=== PATIENT | female | born 1995 | race Caucasian/White ===

== ENCOUNTER 2022-08-20 07:42 | Outpatient (CLI) | payer OTHER ==
[2022-08-20 12:59] LABS: BASOPHILS % (AUTO) 0.4 %; EOSINOPHILS # (AUTO) 0.1 10^3/uL (0.0-0.7); EOSINOPHILS % (AUTO) 1.1 %; HGB - HEMOGLOBIN 12.9 g/dL (12.0-16.0); LYMPHOCYTES % (AUTO) 37.7 %; MEAN CORPUSCULAR HEMOGLOBIN 30.3 pg (27.0-31.0); MEAN CORPUSCULAR HGB CONC 33.1 g/dL (32.0-36.0); MEAN CORPUSCULAR VOLUME 91.5 fL (81.0-99.0); MEAN PLATELET VOLUME 10.8 fL (7.9-10.8); MONOCYTES # (AUTO) 0.5 10^3/uL (0.0-1.0); MONOCYTES % (AUTO) 8.3 %; NEUTROPHILS # (AUTO) 2.8 10^3/uL (1.5-6.6); NEUTROPHILS % (AUTO) 52.3 %; PLT - PLATELET COUNT 387 10^3/uL (130-450); RED BLOOD COUNT 4.26 10^6/uL (4.20-5.40); RED CELL DISTRIBUTION WIDTH 12.9 % (12.0-15.0); WHITE BLOOD COUNT 5.4 x10^3/uL (4.8-10.8)
[2022-08-20 13:27] LABS: ALBUMIN 4.6 g/dL (3.2-5.5); ALBUMIN/GLOBULIN RATIO 1.5 (1.0-2.2); BILIRUBIN,TOTAL 0.9 mg/dL (0.2-1.0); CALCIUM 9.9 mg/dL (8.5-10.3); CREATININE 0.7 mg/dL (0.4-1.0); POTASSIUM 4.5 mmol/L (3.5-5.0); TOTAL PROTEIN 7.7 g/dL (6.7-8.2)
[2022-08-20 13:30] LABS: THYROID STIMULATING HORMONE 2.5 uIU/mL (0.34-5.60)
== END 2022-08-20 07:43 | disposition home or self-care (01) ==
LOC: LAB.N 07:42
PROVIDERS: ATTEND Physician Assistant
DX: Z13.9 Encounter for screening, unspecified (principal); Z13.29 Encounter for screening for other suspected endocrine disorder
CPT/HCPCS: 36415; 80050

== ENCOUNTER 2022-09-14 15:04 | Outpatient (CLI) | payer OTHER | END 2022-09-14 15:05 | disposition home or self-care (01) | LOC: DI 15:04 | PROVIDERS: ATTEND Physician Assistant | DX: R01.1 Cardiac murmur, unspecified (principal) | CPT/HCPCS: 93306 ==

== ENCOUNTER 2022-10-28 14:30 | Outpatient (CLI) | payer OTHER ==
[2022-10-29 12:39] LABS: BILIRUBIN,URINE NEGATIVE (NEGATIVE); GLUCOSE, URINE (UA) NEGATIVE (NEGATIVE); KETONES,URINE (UA) NEGATIVE (NEGATIVE); LEUKOCYTE ESTERASE, URINE NEGATIVE (NEGATIVE); NITRITE,URINE NEGATIVE (NEGATIVE); OCCULT BLOOD,URINE NEGATIVE (NEGATIVE); PROTEIN,URINE NEGATIVE (NEGATIVE); UROBILINOGEN,URINE 0.2 (NORMAL) E.U./dL (NORMAL)
[2022-10-29 12:40] LABS: CLARITY,URINE CLEAR (CLEAR)
[2022-10-29 12:51] LABS: BACTERIA,URINE Few /HPF (None Seen); RBC,URINE 0-5 /HPF (0-5); SQUAMOUS EPITHELIAL CELL,UR FEW Squamous (<= Few); WBC,URINE 0-3 /HPF (0-5)
== END 2022-10-28 23:59 | disposition home or self-care (01) ==
LOC: LAB.WC 14:30
PROVIDERS: ATTEND Nurse Practitioner
DX: Z34.90 Encounter for supervision of normal pregnancy, unspecified, unspecified trimester (principal)
CPT/HCPCS: 81001; 87086; 87181

== ENCOUNTER 2022-11-01 17:09 | Outpatient (CLI) | payer OTHER ==
[2022-11-01 20:44] LABS: BASOPHILS % (AUTO) 0.3 %; EOSINOPHILS # (AUTO) 0.1 10^3/uL (0.0-0.7); EOSINOPHILS % (AUTO) 0.5 %; HCT - HEMATOCRIT 36.3 % (37.0-47.0); HGB - HEMOGLOBIN 12.3 g/dL (12.0-16.0); LYMPHOCYTES # (AUTO) 2.7 10^3/uL (1.5-3.5); LYMPHOCYTES % (AUTO) 27.2 %; MEAN CORPUSCULAR HEMOGLOBIN 30.8 pg (27.0-31.0); MEAN CORPUSCULAR HGB CONC 33.9 g/dL (32.0-36.0); MEAN CORPUSCULAR VOLUME 90.8 fL (81.0-99.0); MEAN PLATELET VOLUME 10.4 fL (7.9-10.8); MONOCYTES # (AUTO) 0.9 10^3/uL (0.0-1.0); MONOCYTES % (AUTO) 8.9 %; NEUTROPHILS # (AUTO) 6.2 10^3/uL (1.5-6.6); NEUTROPHILS % (AUTO) 62.8 %; PLT - PLATELET COUNT 441 10^3/uL (130-450); RED CELL DISTRIBUTION WIDTH 13.1 % (12.0-15.0); WHITE BLOOD COUNT 9.9 x10^3/uL (4.8-10.8)
[2022-11-03 05:10] LABS: HBsAG SCREEN Negative (Negative)
[2022-11-03 06:09] LABS: HCV AB <0.1 s/co ratio (0.0-0.9)
[2022-11-03 08:10] LABS: RPR Non Reactive (Non Reactive); VARICELLA-ZOSTER AB IGG <135 index (Immune >165)
[2022-11-03 10:09] LABS: HIV SCREEN 4TH GENERATION Non Reactive (Non Reactive)
== END 2022-11-01 17:10 | disposition home or self-care (01) ==
LOC: LAB.N 17:09
PROVIDERS: ATTEND Nurse Practitioner
DX: Z34.90 Encounter for supervision of normal pregnancy, unspecified, unspecified trimester (principal)
CPT/HCPCS: 36415; 81001; 85025; 86592; 86762; 86787; 86803; 86850; 86900; 86901; 87086; 87340; 87389

== ENCOUNTER 2022-11-09 18:47 | Outpatient (CLI) | payer OTHER ==
--- NOTE | 2022-11-10 11:56 | Ultrasound Report ---
PROCEDURE: OB First Trimester w/TV INDICATIONS: POSITIVE TEST OUTSIDE/PRIOR DATING DATA: Last menstrual period (LMP): 09/07/2022. LMP-based estimated date of delivery (EFRAIN): 06/14/2023. First dating scan (date and location): 11/09/2022. Estimated date of delivery (EFRAIN) from first dating scan: 06/10/2023. TECHNIQUE: Real-time scanning was performed of the fetus and maternal pelvic organs, with image documentation. Endovaginal scanning was also performed to better visualize the fetus and maternal ovaries. COMPARISON: None FINDINGS: Embryo: Single living intrauterine gestation with estimated sonographic gestational age of approxima tely 9 weeks and 4 days based off crown-rump length measurement of approximately 2.76 cm. Small perig estational hemorrhage measuring 1.6 x 1.1 x 1.4 cm. Heart rate: 167 bpm Measurement variability in dating: +/- 4 weeks by LMP, +/- 7 days by mean sac diameter (use before 6 weeks gestation if crown-rump length not able to be measured), +/- 5 days by crown-rump length (6-12 weeks gestation). Maternal organs: Ovaries demonstrate presence of a large left ovarian cysts versus corpus luteal cys t measuring 6.3 x 4.5 x 6.4 cm. IMPRESSION: Single living intrauterine gestation with estimated sonographic gestational age of approximately 9 we eks and 4 days with estimated date of delivery of approximately 06/10/2023. Large left ovarian cyst measuring up to 6.4 cm in size. Recommend attention on follow-up imaging eval uation. Reviewed by: Antoni Santizo MD on 11/10/2022 11:54 AM PST Approved by: Antoni Santizo MD on 11/10/2022 11:54 AM PST Station ID: [id number]
== END 2022-11-09 18:48 | disposition home or self-care (01) ==
LOC: DI 18:47
PROVIDERS: ATTEND Nurse Practitioner
DX: O34.81 Maternal care for other abnormalities of pelvic organs, first trimester (principal); N83.202 Unspecified ovarian cyst, left side; Z3A.09 9 weeks gestation of pregnancy

== ENCOUNTER 2022-11-26 08:00 | Outpatient (CLI) | payer OTHER ==
[2022-11-27 00:09] LABS: CHLAMYDIA TRACHOMATIS DNA NEGATIVE (NEGATIVE); NEISSERIA GONORRHOEAE DNA NEGATIVE (NEGATIVE); TRICHOMONAS VAGINALIS DNA NEGATIVE (NEGATIVE)
== END 2022-11-26 23:59 | disposition home or self-care (01) ==
LOC: LAB.WC 08:00
PROVIDERS: ATTEND Obstetrics & Gynecology
DX: O23.41 Unspecified infection of urinary tract in pregnancy, first trimester (principal); R82.71 Bacteriuria
CPT/HCPCS: 87086; 87491; 87591; 87661

== ENCOUNTER 2022-12-29 16:20 | Outpatient (CLI) | payer OTHER ==
[2023-01-01 20:07] LABS: AFP MOM 1.11 (.); AFP VALUE 38.9 ng/mL (.); DIA MOM 1.32 (.); DIA VALUE 207.93 pg/mL (.); DSR (BY AGE) 1 IN 864 (.); DSR (SECOND TRIMESTER) 1 IN 1909 (.); GEST. AGE ON COLLECTION DATE 16.1 WEEKS (.); HCG VALUE 47361 mIU/mL (.); INSULIN DEP DIABETES No (.); MATERNAL AGE AT EDD 27.9 yr (.); MULTIPLE GESTATION No (.); OPEN SPINA BIFIDA RISK 1 IN 8647 (.); RACE Caucasian (.); RESULTS Report (.); TEST RESULTS *Screen Negative* (.); TRISOMY 18 RISK Not increased (.); UE3 MOM 0.77 (.); UE3 VALUE 0.76 ng/mL (.); WEIGHT 154 lbs (.)
== END 2022-12-29 16:21 | disposition home or self-care (01) ==
LOC: LAB 16:20
PROVIDERS: ATTEND Obstetrics & Gynecology
DX: Z34.90 Encounter for supervision of normal pregnancy, unspecified, unspecified trimester (principal)
CPT/HCPCS: 36415; 81511

== ENCOUNTER 2023-02-07 20:12 | Outpatient (CLI) | payer OTHER ==
--- NOTE | 2023-02-08 09:29 | Ultrasound Report ---
PROCEDURE: OB Detailed Eval INDICATIONS: SUPERVISION OF NORMAL OUTSIDE/PRIOR DATING DATA: Last menstrual period (LMP): 09/07/2022. LMP-based estimated date of delivery (EFRAIN): 06/14/2023. First dating scan (date and location): 11/09/2022. Estimated date of delivery (EFRAIN) from first dating scan: 06/10/2023. The below data below was generated using the ultrasound EFRAIN of 06/10/2023 TECHNIQUE: Real-time scanning was performed of the fetus, with image documentation and biometric measurements. COMPARISON: 11/09/2022 FINDINGS: General: A single living intrauterine gestation is present. Presentation: Vertex Placenta: Placental position is posterior, without previa. Amniotic fluid index: 18 cm, normal for gestational age. heart rate: 150 beats per minute. Maternal cervical canal: 4.5 cm long; normal length is 2.5 cm or more. biometrics: Biparietal diameter: 5.89 cm. 24 weeks 1 day. Head circumference: 21.3 cm. 23 weeks 3 days. Abdominal circumference: 18.9 cm. 23 weeks 5 days. Femur length: 4.0 cm. 22 weeks 6 days.Composite gestational age from present scan: 23 weeks 3 days Estimated weight and percentile: 588.1 g. 86.9% Measurement variability in biometric dating: +/- 10 days from 12-20 weeks gestation, +/- 2 weeks from 20-30 weeks gestation, +/- 3 weeks at 30 weeks gestation or later. Anatomic survey: Neuro: Ventricles are normal at less than 10 mm. Cisterna magna is normal at 3-11 mm. Cerebellum i s normal in size and morphology. Nuchal skin fold: Normal at less than 6 mm between 14 and 20 weeks gestational age. Face: Nose and lips, facial profile are normal. Spine: No evidence for spina bifida. Heart: 4-chambered heart is present, with normal ventricular outflow tracts. Diaphragm: Diaphragm is intact. Stomach: Left-sided stomach is present. Kidneys: No hydronephrosis. Normal is less than 5 mm in 2nd trimester, less than 7 mm in 3rd trimester. Cord: 3 vessel cord has orthotopic insertion. Bladder: Normal in size. Extremities: All 4 extremities are visualized. IMPRESSION: 1. Composite gestational age by present scan 23 weeks 3 days. 2. Normal ANDRES. 3. 588.1 g, 86.9 percentile Reviewed by: Derek Edmonds on 02/08/2023 9:28 AM PDT Approved by: Derek Edmonds on 02/08/2023 9:28 AM PDT Station ID: [id number]
== END 2023-02-07 20:13 | disposition home or self-care (01) ==
LOC: DI 20:12
PROVIDERS: ATTEND Obstetrics & Gynecology
DX: Z34.92 Encounter for supervision of normal pregnancy, unspecified, second trimester (principal); Z3A.23 23 weeks gestation of pregnancy

== ENCOUNTER 2023-02-24 08:50 | Outpatient (CLI) | payer OTHER ==
[2023-02-24 09:18] LABS: CREATININE,URINE 52.8 mg/dL; PROTEIN/CREATININE RATIO,URINE 0.1 (<=0.2)
[2023-02-24 10:07] LABS: HCT - HEMATOCRIT 32.5 % (37.0-47.0); HGB - HEMOGLOBIN 10.8 g/dL (12.0-16.0); MEAN CORPUSCULAR HEMOGLOBIN 30.8 pg (27.0-31.0); MEAN CORPUSCULAR HGB CONC 33.2 g/dL (32.0-36.0); MEAN CORPUSCULAR VOLUME 92.6 fL (81.0-99.0); RED BLOOD COUNT 3.51 10^6/uL (4.20-5.40); RED CELL DISTRIBUTION WIDTH 13.6 % (12.0-15.0); WHITE BLOOD COUNT 8.5 x10^3/uL (4.8-10.8)
[2023-02-24 10:22] LABS: URIC ACID 3.6 mg/dL (2.6-7.2)
== END 2023-02-24 08:51 | disposition home or self-care (01) ==
LOC: LAB 08:50
PROVIDERS: ATTEND Obstetrics & Gynecology
DX: O99.891 Other specified diseases and conditions complicating pregnancy (principal); R03.0 Elevated blood-pressure reading, without diagnosis of hypertension
CPT/HCPCS: 36415; 82570; 82950; 84156; 84550; 85027

== ENCOUNTER 2023-04-29 14:01 | Outpatient (CLI) | payer OTHER ==
--- NOTE | 2023-04-29 19:51 | Ultrasound Report ---
PROCEDURE: OB F/U or Repeat INDICATIONS: UTERINE SIZE DATE DISCREPENCY OUTSIDE/PRIOR DATING DATA: Last menstrual period (LMP): 09/07/2022. LMP-based estimated date of delivery (EFRAIN): 06/15/2023. First dating scan (date and location): 11/09/2022. Estimated date of delivery (EFRAIN) from first dating scan: 06/10/2023. The below data below was generated using the working EFRAIN of 06/10/2023 TECHNIQUE: Real-time scanning was performed of the fetus, with image documentation and biometric measurements. Endovaginal scanning: None COMPARISON: None. FINDINGS: General: A single living intrauterine gestation is present. Presentation: Vertex Placenta: Placental position is posterior, without previa. Amniotic fluid index: 16.4 cm, 63rd percentile for gestational age. heart rate: 141 beats per minute. Maternal cervical canal: 3.9 cm long; normal length is 2.5 cm or more. biometrics: Biparietal diameter: 8.8 cm, 35 week 3 day Head circumference: 32.1 cm, 36 week 2 day Abdominal circumference: 30.2 cm, 34 week 1 day Femur length: 6.2 cm, 32 week 1 day Estimated gestational age from initial scan: 34 week 0 day Composite gestational age from present scan: 34 week 4 day Estimated weight and percentile: 2308 g, 41 percentile Measurement variability in biometric dating: +/- 10 days from 12-20 weeks gestation, +/- 2 weeks from 20-30 weeks gestation, +/- 3 weeks at 30 weeks gestation or more. Other: Not applicable. IMPRESSION: Single live intrauterine consistent with 34 week 4 day gestation by current ultrasound Reviewed by: Doyle Raymundo MD on 04/29/2023 6:50 PM HOME Approved by: Doyle Raymundo MD on 04/29/2023 6:50 PM [facility] Station ID: [id number]
== END 2023-04-29 14:02 | disposition home or self-care (01) ==
LOC: DI 14:01
PROVIDERS: ATTEND Obstetrics & Gynecology
DX: O26.843 Uterine size-date discrepancy, third trimester (principal); Z3A.34 34 weeks gestation of pregnancy

== ENCOUNTER 2023-05-20 08:00 | Outpatient (CLI) | payer OTHER | END 2023-05-20 23:59 | disposition home or self-care (01) | LOC: LAB.WC 08:00 | PROVIDERS: ATTEND Nurse Practitioner | DX: Z36.85 Encounter for antenatal screening for Streptococcus B (principal) | CPT/HCPCS: 87797 ==

== ENCOUNTER 2023-06-18 17:19 | Inpatient (IN) | payer OTHER ==
[2023-06-18] MEDS ORDERED: METHYLERGONOVINE 0.2 MG/ML VIAL IM PRN (17:48)
[2023-06-18] MEDS ORDERED: TERBUTALINE 1 MG/ML VIAL SUBQ PRN (17:48)
[2023-06-18] MEDS ORDERED: LABETALOL 20 MG/4 ML SYRINGE IVP PRN ×3 (17:48)
[2023-06-18] MEDS ORDERED: miSOPROStoL 200 MCG TABLET PR PRN (17:48)
[2023-06-18] MEDS ORDERED: NIFEdipine 10 MG CAPSULE PO PRN (17:48)
[2023-06-18] MEDS ORDERED: OXYTOCIN 10 UNIT/ML VIAL IM PRN (17:48)
[2023-06-18] MEDS ORDERED: lidocaine 1% 20 ML MDV ID PRN (17:48)
[2023-06-18] MEDS ORDERED: OXYTOCIN/SODIUM CHLORIDE 500 ML IV PRN (17:48)
[2023-06-18] MEDS ORDERED: fentaNYL 100 MCG/2 ML VIAL IVP PRN (17:48)
[2023-06-18] MEDS ORDERED: CARBOPROST TROMETHAMINE 250 MCG/ML AMP IM PRN (17:48)
[2023-06-18] MEDS ORDERED: TRANEXAMIC ACID IN NACL 1,000 MG/100 ML BAG IV PRN (17:48)
[2023-06-18] MEDS ORDERED: miSOPROStoL 200 MCG TABLET BC PRN (17:48)
[2023-06-18] MEDS ORDERED: hydrALAZINE INJ 20 MG/ML VIAL IVP PRN ×2 (17:48)
--- NOTE | 2023-06-18 17:57 | HISTORY & PHYSICAL EXAMINATION ---
Admit History - : 1 Parity: 0 Risk/History: positive: None Complications This : positive: None - Mother's Labs Mother's Blood Type: positive: O Mother's RH: positive: Positive GBS: positive: Group B Step Negative Rubella Status: positive: Immune - Other Maternal History Other Maternal History: 06-18 Induction HPI: Patient is a 27-year-old G1, P0 at 40 weeks 4 days gestation here for induction of labor. She has good movement. Denies loss of fluid. No DODSON/BV or RUQP. No vaginal bleeding. Denies nausea and vomiting. Denies urinary urgency or dysuria. All other symptoms reviewed and were negative except per HPI. Course LMP: 09/07/2022 EFRAIN by LMP: 06/14/2023 Initial U/S: 09/07/22 /+4 c/w dates Final EFRAIN: 06/14/2023 Problems: Elevated BP: Patient's BP elevated today after immediately coming in, but normal on repeat. Labs sent. Induction scheduled. Varicella non-immune. UTI in Left ovarian cyst 6cm Systolic ejection murmur noted by PCP: Normal echocardiogram Pre- weight: 144 BMI: 24 O+/Rubella immune VZV: NON immune Genetic testing: QUAD-Negative FAS: EFW 588.1g 86.9%ile, 3VC, placenta posterior w/o previa, ANDRES 18cm Glucola: 139 Influenza:08/2022 TDAP:03/18 COVID VAX: 11/03/2021 GBS NEG HSV: Denies in self or partner Breast Pump Rx:03/18 MOD: IOL scheduled 06/20/23 at 1700 pp contraception: pap: 03/28/2021 normal Initial GC/CT: Negative PMH Ovarian cyst Raynaud's phenomenon Migraines PSH Right ankle surgery: 2011 [place] teeth removal: 2014 OB History G1, P0 SH Denies tobacco, alcohol, drugs Family History Sister: Migraines Maternal grandmother: Diabetes, lupus, hypertension, Sjogren's Paternal grandfather: Melanoma/non-Hodgkin's lymphoma Allergies No known drug allergies Medications vitamins Lansoprazole Physical exam: General: Alert, oriented, no acute distress Head: Normal cephalic atraumatic Eyes: PERRLA, extraocular motions intact. Respiratory: Normal rate of respiration. No accessory muscle use, normal respiratory effort. Cardiovascular: Regular rate and rhythm Abdomen: Gravid, nontender, nondistended Extremities: Normal range of motion Neuro: Oriented x3. Normal movements Psych: Appropriate mood and affect. Normal judgment and insight SVE: 2/50/-3, medium, posterior. Modified Tovar score 2 FHT: 140 beats per baseline, moderate variability, accelerations present, no decelerations. Category 1 [place]: Quiescent Plan 27-year-old G1, P0 at 40 weeks 4 days gestation here for induction of labor 1. 40 weeks gestation -Admit to L&D, admit labs, admit for cervical ripening -Misoprostol 25 mcg buccal every 4 hours 2. Elevated blood pressures -We will get CBC, CMP, UA - NST Procedure NST Procedure Start Time 17:55 Stop Time 18:50 Plan for Labor - Plan For Labor I expect patient to be DC'd or transferred within 96 hours.: Yes
[2023-06-18] MEDS: LACTATED RINGERS 1,000 ML IV SCH ×2 (18:15→19:51)
[2023-06-18] MEDS: SODIUM CHLORIDE FLUSH 0.9% 10 ML SYRINGE IVP SCH (18:15)
[2023-06-18 18:24] LABS: BASOPHILS % (AUTO) 0.2 %; EOSINOPHILS % (AUTO) 0.3 %; HCT - HEMATOCRIT 36.2 % (37.0-47.0); HGB - HEMOGLOBIN 12.2 g/dL (12.0-16.0); LYMPHOCYTES # (AUTO) 1.8 10^3/uL (1.5-3.5); LYMPHOCYTES % (AUTO) 16.1 %; MEAN CORPUSCULAR HEMOGLOBIN 30.4 pg (27.0-31.0); MEAN CORPUSCULAR HGB CONC 33.7 g/dL (32.0-36.0); MEAN CORPUSCULAR VOLUME 90.3 fL (81.0-99.0); MEAN PLATELET VOLUME 11.1 fL (7.9-10.8); MONOCYTES # (AUTO) 0.8 10^3/uL (0.0-1.0); MONOCYTES % (AUTO) 7.2 %; NEUTROPHILS # (AUTO) 8.3 10^3/uL (1.5-6.6); NEUTROPHILS % (AUTO) 75.8 %; PLT - PLATELET COUNT 284 10^3/uL (130-450); RED BLOOD COUNT 4.01 10^6/uL (4.20-5.40); RED CELL DISTRIBUTION WIDTH 13.4 % (12.0-15.0)
[2023-06-18 18:27] LABS: ALBUMIN 3.8 g/dL (3.2-5.5); ALBUMIN/GLOBULIN RATIO 1.3 (1.0-2.2); BILIRUBIN,TOTAL 0.5 mg/dL (0.2-1.0); CALCIUM 9.4 mg/dL (8.5-10.3); CREATININE 0.5 mg/dL (0.6-1.3); POTASSIUM 3.6 mmol/L (3.5-4.5); TOTAL PROTEIN 6.8 g/dL (6.4-8.9)
[2023-06-18] MEDS: LACTATED RINGERS 1,000 ML IV PRN (18:48)
[2023-06-18 20:16] LABS: CREATININE,URINE 86.8 mg/dL; PROTEIN/CREATININE RATIO,URINE 0.1 (<=0.2)
--- NOTE | 2023-06-18 21:28 | PROVIDER PROGRESS NOTE ---
Labor Progress Note - Uterine Monitoring Uterine Monitoring Mode: positive: External toco Contraction Frequency (min/apart): Irregular Contraction Intensity: positive: Mild Uterine Resting Tone: positive: Soft - Monitoring Monitor Mode: positive: External ultrasound Heart Rate Baseline: 145 Heart Rate Variability: positive: Moderate (6-25 bmp) Accelerations: positive: Present, 15x15 Decelerations: positive: None Strip Review: positive: Category I - Vaginal Exam Dilation (in cm): 2 Effacement (%): 50 Station: -3 Cervical Position: Posterior - Labor Progress Note Labor Progress Note/Additional Text: After patient's initial NST, stayed tachycardic to the 170s. There was a length of time where heart tracing was difficult to ascertain. Believe the baseline was still 1 45-1 50 with prolonged accelerations, but this could also been decelerations with tachycardia. Due to this, we observed patient, give a fluid bolus and assessed ANDRES. Patient is afebrile and has no leukocytosis. No reason for tachycardia. After observation and fluid hydration, heart rate came back down to the 145 with moderate of the decelerations. While fetus is looking good currently, we decided to place a cervical ripening balloon to cause the least issue. If baby tolerates CRB, will continue with other cervical ripening/induction agents., Will consider whether fetus can tolerate labor. After discussion cervical balloon, patient agreed and cervical ripening balloon was filled with 80 mL internally and 80 mL vaginally. Patient tolerated procedure well.
[2023-06-19] MEDS: LACTATED RINGERS 1,000 ML IV SCH ×3 (03:27→13:15)
[2023-06-19] MEDS ORDERED: OXYTOCIN/SODIUM CHLORIDE 500 ML IV SCH (06:00)
[2023-06-19] MEDS: SODIUM CHLORIDE FLUSH 0.9% 10 ML SYRINGE IVP PRN (07:01)
[2023-06-19] MEDS: miSOPROStoL 100 MCG TABLET BC SCH ×3 (07:49→11:14)
[2023-06-19] MEDS: SODIUM CHLORIDE FLUSH 0.9% 10 ML SYRINGE IVP SCH ×2 (07:50→11:14)
[2023-06-19] MEDS ORDERED: ROPIVACAINE 0.2% 200 MG/100 ML BAG EP ONE (09:53)
[2023-06-19] MEDS ORDERED: LIDOCAINE-PF 2% 10 ML AMP SUBQ ONE (10:19)
[2023-06-19] MEDS ORDERED: SODIUM CHLORIDE 0.9% 10 ML VIAL IVP ONE ×2 (10:19→17:11)
[2023-06-19] MEDS ORDERED: fentaNYL 100 MCG/2 ML VIAL ONE ×2 (10:19→17:11)
--- NOTE | 2023-06-19 10:25 | ANESTHESIA ---
Pre-Anesthesia VS, & Labs - Diagnosis active labor - Procedure vaginal delivery Vital Signs: Temp Pulse Resp BP Pulse Ox O2 Flow Rate 36.9 C 80 16 129/81 H 06/18/23 17:38 06/18/23 17:38 06/18/23 17:38 06/18/23 17:38 Height: 5 ft 5 in Weight (kg): 79.742 kg Body Mass Index: 29.2 BMI Classification: Overweight - NPO Last Fluid Intake: clear liquids - Is Patient ?: Yes - Lab Results Current Lab Results: Laboratory Tests 06/18/23 18:00: Sodium 135, Potassium 3.6, Chloride 105, Carbon Dioxide 22, Anion Gap 8.0, BUN 7, Creatinine 0.5 L, Estimated GFR (MDRD) 148, Glucose 116 H, Calcium 9.4, Total Bilirubin 0.5, AST 18, ALT 16, Alkaline Phosphatase 169 H, Total Protein 6.8, Albumin 3.8, Globulin 3.0, Albumin/Globulin Ratio 1.3 06/18/23 18:00: WBC 11.0 H, RBC 4.01 L, Hgb 12.2, Hct 36.2 L, MCV 90.3, MCH 30.4, MCHC 33.7, RDW 13.4, Plt Count 284, MPV 11.1 H, Neut # (Auto) 8.3 H, Lymph # (Auto) 1.8, [place] # (Auto) 0.8, Eos # (Auto) 0.0, Baso # (Auto) 0.0, Absolute Nucleated RBC 0.00, Nucleated RBC % 0.0 06/18/23 18:00: Blood Type O POSITIVE, Antibody Screen NEGATIVE Lab results reviewed: Yes Fish Bones: 06/18/23 18:00 06/18/23 18:00 Home Medications and Allergies Active Medications Carboprost Tromethamine (Carboprost Tromethamine 250 Mcg/Ml Amp) 250 mcg IM .ONCE PRN PRN Reason: Hemorrhage Fentanyl (Fentanyl 100 Mcg/2 Ml Vial) 50 mcg IVP Q1H PRN PRN Reason: Severe Pain (score 7-10) Last Admin: 06/19/23 07:01 Dose: 50 mcg Hydralazine HCl (Hydralazine Inj 20 Mg/Ml Vial) 10 mg IVP .ONCE PRN; Protocol PRN Reason: SBP> or= 160 OR DBP> or= 110 Hydralazine HCl (Hydralazine Inj 20 Mg/Ml Vial) 5 - 10 mg IVP Q20M PRN; Protocol PRN Reason: SBP> or= 160 OR DBP> or= 110 Oxytocin/Sodium Chloride (Pitocin/Sodium Chloride) 500 mls @ 999 mls/hr IV PRN PRN; Protocol PRN Reason: POST- HEMORR PREVENTION Tranexamic Acid (Tranexamic 1,000 Mg/100ml-Nacl) 1,000 mg in 100 mls @ 600 mls/hr IV Q30M PRN PRN Reason: EBL >1200mL and within 3hr Lactated Ringer's (Lr) 1,000 mls @ 125 mls/hr IV .Q8H SHIV Last Admin: 06/19/23 03:27 Dose: 125 mls/hr Lactated Ringer's (Lr) 1,000 mls @ 999 mls/hr IV PRN PRN PRN Reason: PER PHYSICIAN ORDER Last Infusion: 06/18/23 19:49 Dose: Infused Oxytocin/Sodium Chloride (Pitocin/Sodium Chloride) 500 mls @ 2 mls/hr IV TITR SHIV; Protocol Last Titration: 06/19/23 09:14 Dose: 6 milliunit/min, 6 mls/hr Labetalol HCl (Labetalol 20 Mg/4 Ml Syringe) 20 mg IVP .ONCE PRN; Protocol PRN Reason: SBP> or= 160 OR DBP> or= 110 Labetalol HCl (Labetalol 20 Mg/4 Ml Syringe) 20 - 80 mg IVP Q10M PRN; Protocol PRN Reason: SBP> or= 160 OR DBP> or= 110 Labetalol HCl (Labetalol 20 Mg/4 Ml Syringe) 20 - 40 mg IVP Q10M PRN; Protocol PRN Reason: SBP> or= 160 OR DBP> or= 110 Lidocaine HCl (Lidocaine 1% 20 Ml Mdv) 20 ml ID .ONCE PRN PRN Reason: PERINEAL REPAIR Stop: 06/21/23 17:48 Methylergonovine Maleate (Methylergonovine 0.2 Mg/Ml Vial) 0.2 mg IM .ONCE PRN PRN Reason: Hemorrhage Misoprostol (Misoprostol 200 Mcg Tablet) 600 mcg BC .ONCE PRN PRN Reason: Hemorrhage Misoprostol (Misoprostol 200 Mcg Tablet) 800 mcg VT .ONCE PRN PRN Reason: Hemorrhage Misoprostol (Misoprostol 100 Mcg Tablet) 25 mcg BC Q4H [facility] Last Admin: 06/19/23 07:50 Dose: Not Given Nifedipine (Nifedipine 10 Mg Capsule) 10 - 20 mg PO Q20M PRN; Protocol PRN Reason: SBP> or= 160 OR DBP> or= 110 Oxytocin (Oxytocin 10 Unit/Ml Vial) 10 unit IM .ONCE PRN PRN Reason: Step One if no IV access. Sodium Chloride (Sodium Chloride Flush 0.9% 10 Ml Syringe) 10 ml IVP Q8H [facility] Last Admin: 06/19/23 07:50 Dose: Not Given Sodium Chloride (Sodium Chloride Flush 0.9% 10 Ml Syringe) 10 ml IVP PRN PRN PRN Reason: NEEDED PER PROVIDER ORDERS Last Admin: 06/19/23 07:01 Dose: 10 ml Terbutaline Sulfate (Terbutaline 1 Mg/Ml Vial) 0.25 mg SUBQ .ONCE PRN PRN Reason: Tachystole Allergies/Adverse Reactions: Allergies Allergy/AdvReac Type Severity Reaction Status Date / Time No Known Drug Allergies Allergy Verified 06/18/23 18:14 Anes History & Medical History - Anesthetic History Anesthesia Complications: reports: No previous complications - Medical History Cardiovascular: reports: None Pulmonary: reports: None Gastrointestinal: reports: GERD Urinary: reports: None Neuro: reports: Migraines Musculoskeletal: reports: None Endocrine/Autoimmune: reports: None Blood Disorders: reports: None Skin: reports: None Smoking Status: Never smoker Psychosocial: reports: No issues indicated History of Cancer?: No - Surgical History Orthopedic: reports: Other (orif right ankle) - Obstetrical History : 1 Parity: 0 Events: reports: None Complications: reports: None Exam General: Alert, Oriented x3, Cooperative, No acute distress Dental: WNL Mouth Openin Fingerbreadth Neck Mobility: Normal Mallampati classification: II Thyromental Distance: 4-6 cm Mental/Cognitive Status: Alert/Oriented X3, Normal for patient Plan Anesthesia Type: Epidural Consent for Procedure(s) Verified and Reviewed: Yes Code Status: Attempt Resuscitation ASA classification: 2-Mild systemic disease Is this case an emergency?: No
[2023-06-19] MEDS ORDERED: ROPIVACAINE 0.2% 200 MG/100 ML BAG EP PRN (10:27)
[2023-06-19] MEDS ORDERED: NALOXONE 0.4 MG/ML VIAL IVP PRN ×2 (10:27→17:44)
[2023-06-19] MEDS ORDERED: ePHEDrine 50 MG/ML VIAL IVP PRN (10:27)
[2023-06-19] MEDS: LACTATED RINGERS 1,000 ML IV PRN ×2 (10:47→13:11)
--- NOTE | 2023-06-19 11:41 | PROVIDER PROGRESS NOTE ---
Labor Progress Note - Uterine Monitoring Uterine Monitoring Mode: positive: External toco Contraction Frequency (min/apart): 4-7 Contraction Intensity: positive: Moderate Uterine Resting Tone: positive: Soft - Monitoring Monitor Mode: positive: External ultrasound Heart Rate Baseline: 145 Heart Rate Variability: positive: Moderate (6-25 bmp) Accelerations: positive: Present, 15x15 Decelerations: positive: None Strip Review: positive: Category I - Vaginal Exam Dilation (in cm): 6 Effacement (%): 70 Station: -2 - Labor Progress Note Labor Progress Note/Additional Text: Patient currently doing well. Received an epidural for pain management. Had some hypotension after with occasional late decelerations. Oxytocin was have then stopped. Currently fransisco on her own. Unchanged from previous exam, so discussed amniotomy. AROM was performed with a small amount of clear fluid. Continuing expectant management at this time.
--- NOTE | 2023-06-19 14:55 | PROVIDER PROGRESS NOTE ---
Labor Progress Note - Uterine Monitoring Uterine Monitoring Mode: positive: External toco Contraction Frequency (min/apart): 6-7 Contraction Intensity: positive: Moderate Uterine Resting Tone: positive: Soft - Monitoring Monitor Mode: positive: External ultrasound Heart Rate Baseline: 145 Heart Rate Variability: positive: Moderate (6-25 bmp) Accelerations: positive: Present, 15x15 Decelerations: positive: Late, Recurrent (>50% x20 min) Strip Review: positive: Category II - Vaginal Exam Dilation (in cm): 6 Effacement (%): 70 Station: -2 (At last check per RN) - Labor Progress Note Labor Progress Note/Additional Text: Patient comfortable with epidural. Patient began having repetitive late decelerations that did not resolve. Jing less frequently, approximately 6-7 minutes now that oxytocin has been discontinued. Variability still remains good. Discussed possibility of section with patient if late decelerations do not resolve or cannot restart oxytocin.
[2023-06-19] MEDS ORDERED: ACETAMINOPHEN 500 MG TABLET PO PRN (15:26)
[2023-06-19] MEDS ORDERED: ACETAMINOPHEN 1,000 MG/100 ML 1,000 MG/100 ML BAG IV SCH (16:00)
--- NOTE | 2023-06-19 16:24 | PROVIDER PROGRESS NOTE ---
Labor Progress Note - Uterine Monitoring Uterine Monitoring Mode: positive: External toco Contraction Frequency (min/apart): 2-5 Uterine Resting Tone: positive: Soft - Monitoring Monitor Mode: positive: External ultrasound Heart Rate Baseline: 135 Heart Rate Variability: positive: Moderate (6-25 bmp) Accelerations: positive: Present, 15x15 Decelerations: positive: Late, Prolonged (>2x10 min) Strip Review: positive: Category II - Vaginal Exam Dilation (in cm): 6 Effacement (%): 70 Station: -2 - Labor Progress Note Labor Progress Note/Additional Text: Patient made cervical change throughout the day despite oxytocin use, amniotomy. We have had to stop oxytocin twice due to recurrent late decelerations. She tried a brief course of nipple stimulation and this led to further late decelerations and a prolonged deceleration. Without oxytocin, fetus is category 1 with good variability and accelerations and decelerations resolved, however patient does not make cervical change. At this time we discussed section. section was recommended. Risks, benefits and alternatives were discussed including but not limited to infection, bleeding that may require blood products or hysterectomy for life saving measures, injury to surrounding organs including but not limited to bowel, bladder, ureters, tubes and ovaries and/or the baby. Should injury occur it could require longer/additional surgery to repair. The patient stated understanding and desired to proceed. All questions were answered posed by patient.
[2023-06-19] MEDS ORDERED: ONDANSETRON 4 MG/2 ML VIAL IVP PRN ×2 (16:43→17:44)
[2023-06-19] MEDS ORDERED: ceFAZolin 2 GM VIAL ONE (16:44)
[2023-06-19] MEDS ORDERED: CARBOPROST TROMETHAMINE 250 MCG/ML AMP IM ONE (16:52)
[2023-06-19] MEDS ORDERED: miSOPROStoL 200 MCG TABLET ONE (16:52)
[2023-06-19] MEDS ORDERED: METHYLERGONOVINE 0.2 MG/ML VIAL ONE (16:52)
[2023-06-19] MEDS ORDERED: LACTATED RINGERS 1,000 ML IV SCH ×2 (17:00→19:00)
[2023-06-19] MEDS ORDERED: AZITHROMYCIN INJ 500 MG in SODIUM CHLORIDE 0.9% 250 ML IV SCH (17:00)
[2023-06-19] MEDS ORDERED: ceFAZolin 2 GM in SODIUM CHLORIDE 0.9% MINIBAG 100 ML IV SCH (17:00)
[2023-06-19] MEDS ORDERED: OXYTOCIN 10 UNIT/ML VIAL ONE (17:06)
[2023-06-19] MEDS ORDERED: ONDANSETRON 4 MG/2 ML VIAL ONE (17:24)
[2023-06-19] MEDS ORDERED: DEXAMETHASONE 4 MG/ML VIAL ONE (17:24)
[2023-06-19] MEDS ORDERED: HYDROmorphone 0.5 MG/0.5 ML SYRINGE IVP PRN (17:44)
[2023-06-19] MEDS ORDERED: MORPHINE 2 MG/ML CARPUJECT IVP PRN (17:44)
[2023-06-19] MEDS ORDERED: ATROPINE ABBOJECT 1 MG/10 ML SYRINGE IVP PRN (17:44)
[2023-06-19] MEDS ORDERED: fentaNYL 100 MCG/2 ML VIAL IVP PRN (17:44)
[2023-06-19] MEDS ORDERED: KETOROLAC 30 MG/ML VIAL ONE (17:52)
[2023-06-19] MEDS ORDERED: LACTATED RINGERS 1,000 ML IV ONE (18:15)
[2023-06-19] MEDS ORDERED: SODIUM CHLORIDE FLUSH 0.9% 10 ML SYRINGE IVP PRN (18:19)
[2023-06-19] MEDS ORDERED: OXYTOCIN/SODIUM CHLORIDE 500 ML IV PRN (18:19)
[2023-06-19] MEDS ORDERED: ONDANSETRON ODT 4 MG TABLET TL PRN (18:19)
[2023-06-19] MEDS ORDERED: SIMETHICONE CHEW 80 MG TABLET PO PRN (18:19)
--- NOTE | 2023-06-19 18:19 | OPERATIVE REPORT ---
Operative Report - General Admit Date: 06/19/23 Planned Procedure: Primary low-transverse section Pre-Op Diagnosis: Category 2 tracing, failure to descend Procedure Performed: Primary low-transverse section Post Op Diagnosis: Status post primary low-transverse section - Procedure Note Primary Surgeon: Jm Butler MD Secondary Surgeon: MONO Pearl Anesthesia Provider: Shavonne Stauffer CRNA Anesthesia Technique: Epidural Pathology: None IV Fluids (mL): 800 Estimated Blood Loss (mL): 600 Urine Output (mL): 1,100 Findings: Normal-appearing uterus, ovaries, tubes. Placenta appears grossly normal for term gestation. Small calcifications, but no significant abnormalities. Complications: None - Other Other Information/Narrative: Pre-Op diagnoses: 40 weeks gestation Category 2 tracing, remote from delivery Failure to descend Postop diagnoses: Same Status post primary low-transverse section Delivery of live morin section was recommended. Risks, benefits and alternatives were discussed including but not limited to infection, bleeding that may require blood products or hysterectomy for life saving measures, injury to surrounding organs including but not limited to bowel, bladder, ureters, tubes and ovaries and/or the baby. Should injury occur it could require longer/additional surgery to repair. The patient stated understanding and desired to proceed. All questions were answered posed by patient. Prior to being taken to the OR, 2 grams of cefazolin IV and 500 mg of azithromycin were administered. The patient was taken to the operating room where regional anesthesia was found to be adequate. She was then prepared and draped in the usual sterile fashion in the dorsal supine position with a leftward tilt displacing the uterus. Islas was draining to gravity. SCDs were on bilateral lower extremities. A pfannenstiel skin incision was then made with the scalpel and carried through to the underlying layer of fascia. The fascia was incised in the midline and the incision extended laterally with the Kinney scissors. The superior aspect of the facial incision was then grasped with the Lucian clamps, elevated and the underlying rectus muscles dissected off sharply. Attention was then turned to the inferior aspect of this incision which in a similar fashion was grasped, elevated with the Lucian clamps and the rectus muscle dissected off sharply. The rectus muscles were in the midline. The peritoneum identified, grasped with the pick-ups and entered sharply with the Metzenbaum scissors. The peritoneal incision was then extended superiorly and inferiorly with good visualization of the bladder. The bladder blade was inserted. The vesicouterine peritoneum was identified, grasped with the pick-ups, and entered sharply with Metzenbaum scissors. This incision was then extended laterally and the bladder flap created digitally. The bladder blade was reinserted. The lower uterine segment was identified and incised in a transverse fashion with the scalpel. The uterine incision was then extended bluntly laterally. Upon entry into the uterus, a small amount of clear fluid was noted. The bladder blade was removed. The fetus was in a cephalic presentation, well engaged in the pelvis. The infants head delivered atraumatically. The anterior shoulders were delivered followed by the posterior shoulders then the remainder of the body. The infants mouth and nose were bulb suctioned. The umbilical cord was clamped times two and cut. The infant was handed to the pediatric team. The placenta was removed with gentle traction. The placenta was not sent to pathology. Oxytocin were added to IVF and allowed to run freely. The uterus was exteriorized and cleared of all clots and debris. The uterine incision was inspected and found to be without any extensions and was repaired with 0 Vicryl in a running, locked fashion. A second imbricating layer was performed. Upon inspection, the repaired hysterotomy was found to be hemostatic. The uterus was firm and returned to the abdomen. The gutters were cleared of all clots and debris. The peritoneum was closed with a running suture of 2-0 Vicryl. The fascia was reapproximated with 0 Vicryl in a running fashion. The subcutaneous tissue was closed with 2-0 Vicryl. The skin was closed in a subcuticular fashion with 4-0 Monocryl. The patient tolerated the procedure well. Sponge, lap and needle counts were correct times three. The patient was taken to the recovery room in stable condition. I appreciate the assistance of MONO Pearl during this procedure, and the assistance in retraction, visualization, dissection, and overall assistance during the case were instrumental to the patient's wellbeing. weight: Pending Apgars: 8/9
[2023-06-19] MEDS ORDERED: PHENYLEPHRINE 10 MG/ML VIAL ONE (18:24)
[2023-06-19] MEDS ORDERED: LIDOCAINE MPF 2%-EPI 1:200000 20 ML VIAL ONE (18:26)
[2023-06-19] MEDS: DOCUSATE SODIUM 100 MG CAPSULE PO SCH (22:16)
[2023-06-20] MEDS: ACETAMINOPHEN 500 MG TABLET PO SCH ×3 (00:04→17:52)
[2023-06-20] MEDS: SODIUM CHLORIDE FLUSH 0.9% 10 ML SYRINGE IVP PRN (00:05)
[2023-06-20] MEDS: KETOROLAC 30 MG/ML VIAL IVP SCH ×4 (00:05→18:38)
[2023-06-20] MEDS ORDERED: SODIUM CHLORIDE FLUSH 0.9% 10 ML SYRINGE IVP SCH (01:00)
[2023-06-20 05:28] LABS: BASOPHILS % (AUTO) 0.2 %; EOSINOPHILS % (AUTO) 0.1 %; HGB - HEMOGLOBIN 11.1 g/dL (12.0-16.0); LYMPHOCYTES % (AUTO) 10.4 %; MEAN CORPUSCULAR HEMOGLOBIN 30.4 pg (27.0-31.0); MEAN CORPUSCULAR HGB CONC 32.6 g/dL (32.0-36.0); MEAN CORPUSCULAR VOLUME 93.2 fL (81.0-99.0); MEAN PLATELET VOLUME 10.7 fL (7.9-10.8); MONOCYTES % (AUTO) 9.6 %; NEUTROPHILS % (AUTO) 79.3 %; PLT - PLATELET COUNT 261 10^3/uL (130-450); RED BLOOD COUNT 3.65 10^6/uL (4.20-5.40); RED CELL DISTRIBUTION WIDTH 13.7 % (12.0-15.0); WHITE BLOOD COUNT 16.6 x10^3/uL (4.8-10.8)
[2023-06-20] MEDS: oxyCODONE 5 MG TABLET PO PRN ×3 (05:29→20:52)
[2023-06-20 05:31] LABS: ABNORMAL LYMPHS % (MANUAL) 0 %; BAND NEUTROPHILS % (MANUAL) 0 %
[2023-06-20 05:47] LABS: DIFFERENTIAL COMMENT MANUAL DIFFERENTIAL; LYMPHOCYTES # (MANUAL) 2.5 10^3/uL (1.5-3.5); LYMPHOCYTES % (MANUAL) 15 %; MONOCYTES # (MANUAL) 0.7 10^3/uL (0.0-1.0); NEUTROPHILS # (MANUAL) 13.4 10^3/uL (1.5-6.6); PLATELET ESTIMATE, MANUAL NORMAL (130-450,000) (NORMAL); PLATELET MORPHOLOGY NORMAL APPEARANCE (NORMAL); RBC MORPHOLOGY (MULTIPLE) NORMAL APPEARANCE (NORMAL); WBC MORPHOLOGY (MULTIPLE) NORMAL APPEARANCE (NORMAL)
[2023-06-20] MEDS: DOCUSATE SODIUM 100 MG CAPSULE PO SCH ×2 (09:06→20:52)
--- NOTE | 2023-06-20 17:33 | PROVIDER PROGRESS NOTE ---
Subjective - Prog Note Date Prog Note Date: 06/20/23 Prog Note Time: 12:00 - Subjective Pt reports feeling: Improved Subjective: Comfortable, pain controlled. Appropriate lochia. Ambulating. Voiding. Tolerating regular diet. well. Mood is good. Objective - Vital Signs/Intake & Output Reviewed Vital Signs: Yes Vital Signs: Vital Signs x48h Pulse Resp BP Pulse Ox 06/20/23 16:10 80 17 135/85 H 100 Intake & Output: Intake & Output 06/17/23 06/18/23 06/19/23 06/20/23 23:59 23:59 23:59 23:59 Intake Total 2074 3241.301 1123.333 Output Total 1000 3550 Balance 207 2240.301 -8129.857 - Objective General Appearance: positive: No acute distress Eyes Bilateral: positive: Normal inspection Respiratory: positive: No respiratory distress Abdomen: positive: Other (Dressing removed, incision c/d/i with steri strips) Skin: positive: Color nml Extremities: positive: Non-tender Neurologic/Psychiatric: positive: Oriented x3 - Lab Results Fish Bones: 06/20/23 05:16 06/18/23 18:00 Other Labs: Lab Results x24hrs 06/20/23 Range/Units 05:16 WBC 16.6 H (4.8-10.8) x10^3/uL RBC 3.65 L (4.20-5.40) 10^6/uL Hgb 11.1 L (12.0-16.0) g/dL Hct 34.0 L (37.0-47.0) % MCV 93.2 (81.0-99.0) fL MCH 30.4 (27.0-31.0) pg MCHC 32.6 (32.0-36.0) g/dL RDW 13.7 (12.0-15.0) % Plt Count 261 (130-450) 10^3/uL MPV 10.7 (7.9-10.8) fL Neut # (Auto) Not Reportable Lymph # (Auto) Not Reportable [place] # (Auto) Not Reportable Eos # (Auto) Not Reportable Baso # (Auto) Not Reportable Absolute Nucleated RBC Not Reportable Total Counted 100 Band Neuts % (Manual) 0 (0 - 10) % Abnorm Lymph % (Manual) 0 % Nucleated RBC % Not Reportable Neutrophils # (Manual) 13.4 H (1.5-6.6) 10^3/uL Lymphocytes # (Manual) 2.5 (1.5-3.5) 10^3/uL Monocytes # (Manual) 0.7 (0.0-1.0) 10^3/uL Eosinophils # (Manual) 0.0 (0-0.7) 10^3/uL Basophils # (Manual) 0.0 (0-0.1) 10^3/uL Differential Comment MANUAL DIFFERENTIAL WBC Morphology NORMAL APPEARANCE (NORMAL) Platelet Estimate NORMAL (130-450,000) (NORMAL) Platelet Morphology NORMAL APPEARANCE (NORMAL) RBC Morph Micro Appear NORMAL APPEARANCE (NORMAL) Assessment/Plan - Problem List (1) care following delivery Impression: 27yo s/p PCD for NRFHT 06/19/23, POD#1 - Routine , postoperative care - Anticipate discharge tomorrow
[2023-06-20] MEDS: IBUPROFEN 600 MG TABLET PO SCH ×2 (17:59→23:39)
[2023-06-20] MEDS ORDERED: IBUPROFEN 600 MG TABLET PO SCH (19:00)
[2023-06-21] MEDS: ACETAMINOPHEN 500 MG TABLET PO SCH ×2 (01:57→10:05)
[2023-06-21] MEDS: IBUPROFEN 600 MG TABLET PO SCH (05:25)
[2023-06-21] MEDS: oxyCODONE 5 MG TABLET PO PRN (07:45)
[2023-06-21 08:05] VITALS: BP 116/68
--- NOTE | 2023-06-21 09:25 | Discharge Plan ---
Discharge Plan Problem Reviewed?: Yes Disposition: Home, Self Care Condition: Good Diet: Regular Activity Restrictions: No Restrictions Shower Restrictions: No Driving Restrictions: Yes (no driving wtih oxycodone) Weight Bearing: Full Weight Instruction Topics: , Depression , Self Care No Smoking: If you smoke, Please STOP! Call for help. Follow-up with: Kenyatta Lee PA [Primary Care Provider] -
--- NOTE | 2023-06-21 09:29 | DISCHARGE SUMMARY ---
"Discharge Summary Admit Date: 06/18/23 Discharge Date: 06/21/23 Discharging Provider: Marina Vásquez DO Code Status: Attempt Resuscitation Condition at Discharge: Good Discharge Disposition: 01 Home, Self Care Discharge Facility Name: [facility] - DIAGNOSES Admission Diagnoses: 27yo at 40.4w admitted for IOL for gestational hypertension - HPI History of Present Illness: 27yo at 40.4w admitted for IOL for gestational hypertension. - CONSULTS | PROCEDURES Consultations: Anesthesia - HOSPITAL COURSE Hospital Course: 27yo at 40.4w admitted for IOL for gestational hypertension. She was induced with cervical balloon, Pitocin and amniotomy. She was having late decelerations limited Pitocin use and ultimately NRFHT, requiring CD. See operative report for PCD, uncomplicated. She is recovering appropriately. Breast feeding well. Mood is good. BP normal and asymptomatic. Feels ready for discharge now on PPD#2. , postoperative care reviewed. Follow up 1w for incision check. - ALLERGIES Allergies/Adverse Reactions: Allergies Allergy/AdvReac Type Severity Reaction Status Date / Time No Known Drug Allergies Allergy Verified 06/18/23 18:14 - PHYSICAL EXAM AT DISCHARGE General Appearance: positive: No acute distress Eyes Bilateral: positive: EOMI Respiratory: positive: No respiratory distress Abdomen: positive: Non-tender (incision c/d/i) Skin: positive: Color nml Extremities: positive: Non-tender Neurologic/Psychiatric: positive: Oriented x3 - LABS Result Diagrams: 06/20/23 05:16 06/18/23 18:00 - QUALITY (Female Hip Fx Only) Was patient sent home on osteoporosis medication?: No - FOLLOW UP Follow Up: 06/28/23 2p - TIME SPENT Time Spent in Discharge (Minutes): 25"
[2023-06-21] MEDS: DOCUSATE SODIUM 100 MG CAPSULE PO SCH (09:44)
[2023-06-21] MEDS ORDERED: VARICELLA VACCINE LIVE/PF 1,350 UNIT/0.5 ML VIAL SUBQ ONE (10:28)
--- NOTE | 2023-06-21 12:57 | Labor Flowsheet ---
Labor Flowsheet Datetime Report Generated by CPN: 06/21/2023 12:56 Datetime: 06/19/2023 16:40 Pulse: 142 SpO2 (%): 100 UTERINE ACTIVITY Monitor Mode: External Frequency (min): 2-9 Quality: Moderate Duration (sec): 50-90 Pattern: Normal: <= 5 Contractions in 10 Minutes Resting Tone (Palpate): Relaxed Contraction Comments: to OR ASSESSMENT A Monitor Mode: External US FHR Baseline Rate : 145 Variability: Moderate 6-25 bpm Accelerations: 15X15 Decelerations: Late Category: Category II Oxygen Method: Room Air LaborFlag: Labor Datetime: 06/19/2023 16:30 VITAL SIGNS NBP Sys/Pinky/Mean (mmHg): 123 : 97 : 101 Datetime: 06/19/2023 16:14 VAGINAL EXAM Dilatation (cm): 6.0 Effacement (%): 70 Station: -1 Exam by: J. Luke Datetime: 06/19/2023 15:56 Patient Position/Activity: Right Lateral Datetime: 06/19/2023 14:45 FHR Baseline Changes: No Baseline Change Datetime: 06/19/2023 14:16 MEDICATIONS Pitocin (milliunits): Discontinued Datetime: 06/19/2023 14:15 Comments: FHR 135-145, interupted strip Datetime: 06/19/2023 14:04 Monitor Interventions for UA: [place] Adjusted Monitor Interventions for FHR: Ultrasound Adjusted Datetime: 06/19/2023 13:59 Cervix, Position: Midposition Datetime: 06/19/2023 13:11 PATIENT CARE IV/Blood Work: IV Bolus Given ml @ 250ml Datetime: 06/19/2023 11:32 Membrane Status: Ruptured Membranes Ruptured Date/Time: 06/19/2023 11:32 Membranes Rupture Method: Artificial Amniotic Fluid Color: Clear Amniotic Fluid Amount: Moderate Amniotic Fluid Odor: Normal Datetime: 06/19/2023 10:41 I/O Interventions: Islas Cath Inserted Datetime: 06/19/2023 10:15 Epidural Procedure Other: Redose Datetime: 06/19/2023 10:08 Epidural Procedure: Loading Dose Datetime: 06/19/2023 09:58 Anesthesia Comments: started Datetime: 06/19/2023 09:54 PROCEDURE TIME OUT Procedure Verify: Correct Patient Identity; Correct Side and Site are Marked; Accurate Procedure Co nsent Form; Agreement on Procedure to be Done; Correct Patient Position; Relevant Images and Results are Properly Labeled and Displayed; Addressed Need to Administer Antibiotics or Fluids for Irrigation ; Safety Precautions Based on Patient History or Medication Use Datetime: 06/19/2023 09:52 ANESTHESIA Anesthesia Plans: Epidural Epidural Positioning: Sitting Datetime: 06/19/2023 08:08 COMMUNICATION Communication: Call/Page Placed to Provider Communication Comments: updated Dr. Luke on cervical exam Datetime: 06/19/2023 08:07 Vaginal Bleeding: Normal Show Datetime: 06/19/2023 07:44 Patient Care Comments: CRB pulled to tension and expelled Datetime: 06/19/2023 07:39 Stage of : Labor Datetime: 06/19/2023 07:03 Analgesics/Sedatives: Fentanyl (mcg) @ 50 Datetime: 06/19/2023 06:03 Temperature (C): 37.1 Datetime: 06/19/2023 06:00 Pitocin Checklist: At Least 1 Acceleration of 15 bpm x 15 Seconds in 30 Minutes or Adequate Variabi lity; No More than 1 Late Deceleration Occurred in Past 30 Minutes; No More than 2 Variable Decelerat ions > 60 Seconds in Duration and decreasing >60 bpm in 30 minutes; No More than 5 Uterine Contractio ns in 10 Minutes for any 20 Minute Interval; Uterus Palpates Soft between Contractions Datetime: 06/19/2023 03:30 Respirations: 18 PAIN Pain Presence: Intermittent Pain Relief Measures: Comfort Measures Pain Coping: Breathing Through Contractions Pain Assessment Comments: Using nitrous intermitently, pt states helping with pain MATERNAL ASSESSMENT Level of Consciousness: Alert DTR's/Clonus: DTRs 2+; No Clonus Headache: Denies Breath Sounds, Left: Clear and Equal Breath Sounds, Right: Clear and Equal Nausea/Vomiting: Denies RUQ Epigastric Pain: Denies TEACHING Plan of Care: Plan of Care Discussed; Labor Labor/Induction: Labor Stages Pain Management: Comfort Measures Datetime: 06/18/2023 21:16 Procedures: Bedside Ultrasound Done Datetime: 06/18/2023 19:29 Pain Type: Cramping Pain Location: Other Datetime: 06/18/2023 18:48 Actions for Decelerations: IV Bolus Datetime: 06/18/2023 18:38 Provider Notified (Name): Dr. Butler Notification Reason: Status Datetime: 06/18/2023 17:43 Cervix, Consistency: Moderate Datetime: 05/30/2023 19:39 Cervical Ripening Agents: Cytotec @
--- NOTE | 2023-06-23 09:37 | ANESTHESIA POST OP EVALUATION ---
Anesthesia Post Eval - Post Anesthesia Eval Vitals: Last Vital Signs Temp 36.5 C 06/21/23 07:55 Pulse 83 06/21/23 07:55 Resp 16 06/21/23 07:55 BP 116/68 06/21/23 07:55 Pulse Ox 100 06/21/23 07:55 O2 Flow Rate CV Function Including HR & BP: Stable Pain Control: Satisfactory Nausea & Vomiting: Negative Mental Status: Baseline Respiratory Status: Airway Patent Hydration Status: Satisfactory Anesthesia Complications: None
== END 2023-06-21 11:55 | disposition home or self-care (01) | DRG 788 ==
LOC: WFO 17:19 → FBP 17:21 → WFO 18:35 → OBSVTOIN 06-19 05:50 → FBP 06-19 18:17
PROVIDERS: ADMIT Obstetrics & Gynecology; ATTEND Obstetrics & Gynecology
PROC: 10D00Z1 Extraction of Products of Conception, Low, Open Approach (ICD-10-PCS; 2023-06-19)
PROC: 10907ZC Drainage of Amniotic Fluid, Therapeutic from Products of Conception, Via Natural or Artificial Opening (ICD-10-PCS; principal; 2023-06-19 16:45)
DX: O13.4 Gestational [pregnancy-induced] hypertension without significant proteinuria, complicating childbirth (principal); O76 Abnormality in fetal heart rate and rhythm complicating labor and delivery; Z3A.40 40 weeks gestation of pregnancy; Z37.0 Single live birth; O32.4XX0 Maternal care for high head at term, not applicable or unspecified; O26.53 Maternal hypotension syndrome, third trimester
CPT/HCPCS: 36415; 59200; 80053; 82570; 84156; 85025; 86850; 86900; 86901; 90716; A9270; J7120

== ENCOUNTER 2024-04-14 09:15 | Outpatient (CLI) | payer OTHER | END 2024-04-14 09:30 | disposition home or self-care (01) | LOC: LAB.N 09:15 | PROVIDERS: ATTEND Nurse Practitioner | DX: J02.0 Streptococcal pharyngitis (principal) | CPT/HCPCS: 87070; 87077 ==